=== PATIENT | female | born 1985 | race Caucasian/White ===

== ENCOUNTER 2017-07-04 18:07 | Emergency (ER) | payer BC ==
--- NOTE | 2017-07-04 19:19 | RAD ---
Indication: Right ankle pain. 3 views of the right ankle demonstrates no fracture. Ankle mortise is intact. IMPRESSION: No fracture of the right ankle is noted.
--- NOTE | 2017-07-04 19:46 | ED ---
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 Patient states the posterior part of her distal leg/ ankle hurts and she is unable to walk without intense pain. Denies obvious swelling, bruising. Has not taken any medication for the pain. States she had someone clip her ankle from behind. Denies prior injury. No other complaints or injuries besides a contusion on right knee. Patient is having difficulty with ROM of right ankle/foot. No other medical problems other than asthma. No other complaints. Denies numbness/tingling. - History of Current Complaint Chief Complaint: EDExtremityLower Stated Complaint: RIGHT FOOT INJURY Time Seen by Provider: 07/04/17 19:13 Hx Obtained From: Patient Mechanism Of Injury: Direct Blow - posterior ankle stepped on/clipped Onset of Pain: Immediate, Post Accident Onset/Duration: Minutes Severity Initially: Moderate Severity Currently: Moderate Pain Intensity: 5 Pain Scale Used: 0-10 Numeric Timing: Constant Location: Is Discrete @ - posterior distal leg/ankle, right side Character Of Pain: Aching, Stiffness - unable to move/tight Associated Signs And Symptoms: Positive: Negative Aggravating Factor(s): Standing, Movement, Weight Bearing Alleviating Factor(s): Rest Able to Bear Weight: Yes - however very painful, weight more on left side - Allergies/Home Medications Allergies/Adverse Reactions: Allergies Allergy/AdvReac Type Severity Reaction Status Date / Time Shellfish Allergy Allergy Itching Verified 07/04/17 18:32 PMH/Surg Hx/FS Hx/Imm Hx Endocrine/Hematology History: Denies: Hx Diabetes Cardiovascular History: Denies: Hx Hypertension Respiratory History: Reports: Hx Asthma - Surgical History Surgery Procedure, Year, and Place: n/a - Immunization History Immunizations Up to Date: Yes Infectious Disease History: No Infectious Disease History: Denies: Traveled Outside the [place] in Last 30 Days - Family History Known Family History: Positive: None - Social History Alcohol Use: Weekly Substance Use Type: Reports: None Smoking Status (MU): Never Smoked Tobacco Review of Systems Constitutional: Negative Cardiovascular: Negative Respiratory: Negative Gastrointestinal: Negative Positive: Arthralgia, Myalgia, Decreased ROM - rigth ankle Neurological: Negative All Other Systems Reviewed And Are Negative: Yes Physical Exam Triage Information Reviewed: Yes Vital Signs On Initial Exam: Initial Vitals Temp Pulse Resp BP Pulse Ox 97.8 F 79 15 119/87 100 07/04/17 18:13 07/04/17 18:13 07/04/17 18:13 07/04/17 18:13 07/04/17 18:13 Vital Signs Reviewed: Yes Appearance: Positive: Well-Appearing, Well-Nourished, Pain Distress - moderate with movement or on palpation Skin: Positive: Warm, Skin Color Reflects Adequate Perfusion, Dry. Negative: Cold, Soft, Pale, Erythema @ Head/Face: Positive: Normal Head/Face Inspection Eyes: Positive: Conjunctiva Clear ENT: Positive: Hearing grossly normal Neck: Positive: Supple, Nontender Respiratory/Lung Sounds: Positive: Clear to Auscultation, Breath Sounds Present. Negative: Rales, Rhonchi, Wheezes Cardiovascular: Positive: Normal, RRR, Pulses are Symmetrical in both Upper and Lower Extremities - 2+ pedal b/l CMS intact. Negative: Murmur, Rub Musculoskeletal: Positive: Limited @ - right ankle with flexion and extension, unable, able with passive, some pain, tender to palpation, no obvious deformity , no ecchymosis or edema noted. no step off or crepits, Pain @ - posterior right ankle at achilles tendon area. positive guadarrama test, Other - rest of MSK exam normal. Negative: Interruption @ Neurological: Positive: Normal, Sensory/Motor Intact - sensation intact, Alert, Oriented to Person Place, Time, CN Intact II-III, NV Bundle Intact Distally, Unable to Assess Gait - due to injury Psychiatric: Positive: Affect/Mood Appropriate Diagnostics - Vital Signs Vital Signs Temp Pulse Resp BP Pulse Ox 07/04/17 18:13 97.8 F 79 15 119/87 100 - Laboratory Lab Statement: Any lab studies that have been ordered have been reviewed, and results considered in the medical decision making process. - Radiology r ankle Xray Interpretation: No Acute Changes - No fracture of the right ankle is noted. Radiology Interpretation Completed By: Radiologist Lower Extremity Course/Dx - Course Course Of Treatment: x-ray obtained and negative. due to PE findings (+guadarrama) , MATILDE and HPI patient will be treated for concern of achilles tendon rupture/ tear. placed in slight plantar flexion, equinus, splint. CMS intact both before and after. No other complaints or injuries. given ibuprofen for pain. Follow up ortho for further imaging and evaluation. follow up pcp. aware of worsening signs and symptoms to watch out for. RICE and NSAIDs at home. Do not get splint wet. Crutches and non weight bearing. - Diagnoses Differential Diagnosis/HQI/PQRI: Positive: Contusion, Dislocation, Fracture ( Closed), Sprain, Strain Provider Diagnoses: Right ankle sprain, Achilles tendon injury Discharge - Discharge Plan Condition: Stable Disposition: HOME Prescriptions: Ibuprofen TAB* [Motrin TAB* 600 MG] 600 mg PO Q6H PRN #30 tab PRN Reason: Pain Patient Education Materials: Achilles Tendon Rupture (ED), Ankle Sprain (ED) Referrals: No Primary Care Phys,NOPCP [Primary Care Provider] - Papo Vázquez MD [Medical Doctor] - Additional Instructions: Take ibuprofen for pain and inflammation. Rice, elevate, and compression. Ice as much as possible. Do not remove splint unless it feels like it is too tight. Use crutches, and do not bear weight. Do not get splint wet. Follow up and make an appointment with Ortho for further up imaging and evaluation. Return if symptoms worsen or new symptoms develop.
[2017-07-04] MEDS ORDERED: Ibuprofen TAB* 600 MG PO ONE (21:12)
[2017-07-04 22:13] VITALS: BP 117/75
== END 2017-07-04 21:39 | disposition home or self-care (01) ==
LOC: ED 18:07
DX: S93.401A Sprain of unspecified ligament of right ankle, initial encounter (principal); M25.571 Pain in right ankle and joints of right foot; X58.XXXA Exposure to other specified factors, initial encounter; Y93.66 Activity, soccer; Y92.9 Unspecified place or not applicable; Y99.9 Unspecified external cause status; S86.001A Unspecified injury of right Achilles tendon, initial encounter
CPT/HCPCS: 99282; A9270-GY

== ENCOUNTER 2017-07-17 12:29 | Day surgery (SDC) | payer BC ==
[~2017-07-17 12:29] MED LIST: Buffered Lidocaine 0.9% SYRIN* 5 ML/SYR SYRINGE INTRADERM ONE
[2017-07-17] MEDS ORDERED: ceFAZolin 2 GM PREMIX (*) 50 ML IVPB ONE (12:30)
[2017-07-17] MEDS ORDERED: Buffered Lidocaine 0.9% SYRIN* 5 ML/SYR SYRINGE ONE (12:30)
[2017-07-17] MEDS ORDERED: Bupivacaine 0.5% SDV PF* 30 ML VIAL ONE (13:30)
[2017-07-17] MEDS ORDERED: Lidocaine 1.5% EPI 1:200,000* 30 ML SDV ONE (15:09)
[2017-07-17] MEDS ORDERED: fentaNYL* 50 MCG/ML 2 ML VIAL (100 MCG VIAL) ONE ×3 (15:13→17:28)
[2017-07-17] MEDS ORDERED: Midazolam* 1 MG/ML 2 ML VIAL (2 MG) ONE (15:13)
[2017-07-17] MEDS ORDERED: Ondansetron INJ* 2 MG/ML VIAL ONE (15:41)
[2017-07-17] MEDS ORDERED: Lidocaine 2% PF * 5 ML VIAL ONE (15:41)
[2017-07-17] MEDS ORDERED: Propofol* 10 MG/ML 20 ML BTL IV PUSH ONE (15:41)
[2017-07-17] MEDS ORDERED: Succinylcholine* 20 MG/ML 10 ML VIAL ONE (15:41)
[2017-07-17] MEDS ORDERED: Dexamethasone IV* 4 MG/ML 1 ML (4 MG) ONE (15:41)
[2017-07-17] MEDS ORDERED: Ibuprofen TAB* 600 MG PO PRN (17:25)
[2017-07-17] MEDS ORDERED: Metoclopramide IV* 5 MG/ML 2 ML VIAL IV PRN (17:25)
[2017-07-17] MEDS ORDERED: Scopolamine 1.5 mg* PATCH TRANSDERM PRN (17:25)
[2017-07-17] MEDS ORDERED: Acetaminophen TAB* 325 MG PO PRN (17:25)
[2017-07-17] MEDS ORDERED: Ibuprofen TAB* 600 MG ONE (17:28)
[2017-07-17] MEDS ORDERED: oxyCODONE/Acetamin 5/325 MG* TAB ONE (17:28)
[2017-07-17] MEDS: fentaNYL* 50 MCG/ML 2 ML VIAL (100 MCG VIAL) IV PRN ×3 (17:29→18:39)
[2017-07-17] MEDS ORDERED: HYDROmorphone INJ* 1 MG/ML CARPUJECT SYRINGE ONE (17:36)
[2017-07-17] MEDS: HYDROmorphone INJ* 1 MG/ML CARPUJECT SYRINGE IV PRN ×3 (17:51→18:14)
[2017-07-17 19:22] VITALS: BP 122/76
--- NOTE | 2017-07-18 10:26 | OP ---
OPERATIVE REPORT: DATE OF OPERATION: 07/17/17 DATE OF : 87 SURGEON: Romero Martinez MD. DRILLER AND REAMER: JUVE Ashley. A physician urgent care physician assistant was required for the length of the procedure for positioning and retraction. ANESTHESIOLOGIST: Vandana Kolb MD. ANESTHESIA: General anesthesia, 7 cc of 1.5% lidocaine with epinephrine. PRE-OP DIAGNOSIS: Right Achilles tendon rupture. POST-OP DIAGNOSIS: Right Achilles tendon rupture. OPERATIVE PROCEDURE: Right open Achilles tendon repair. IV FLUIDS: 1100 cc crystalloid. ANTIBIOTICS: Ancef 2 g IV. TOURNIQUET TIME: 69 minutes at 300 mmHg. COMPLICATIONS: None. ESTIMATED BLOOD LOSS: Minimal. SPECIMEN: None. IMPLANTS: FiberWire #2 suture only. 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 Diagnosis was confirmed on MRI. I discussed with the patient in the office nonoperative and operative treatment of Achilles tendon r uptures, specifically proximal type. The patient opted for operative management. Discussed benefit s, risks and potential complications with the patient. Risks and potential complications discussed included bleeding, infection, nerve or blood vessel injury, wound breakdown, Achilles tendon reruptu re. DESCRIPTION OF PROCEDURE: Preoperative written consent was obtained. Operative extremity was marke d in the preoperative holding. The patient was taken back to the operating room and intubated on th e stretcher. The patient was flipped over and placed prone on the operating room table. Bumps were placed, x2, that ran from the ASIS of the pelvis, left and right to the chest, under the breast. O perating room table was well padded. Axillae were both free. Tourniquet was placed on the right lo wer extremity, thigh. The right lower extremity was prepped with Betadine. The right lower extremit y was draped. Surgical time-out was performed. Esmarch was applied and tourniquet was elevated to 300 mmHg. Skin incision was made, longitudinal, just medial to the medial border of the Achilles tendon, centered proximal to distal over the defect in the Achilles, palpable through the skin and confirmed with a ruler to be approximately 6 cm prox imal to the distal insertion, corresponding with MRI images. I continued deep dissection with a deep blade, #15 also. Cut down to the peritenon. Incised the pe ritenon in a longitudinal fashion, mirroring the skin incision. The patient was noted to have what seemed to be decent quality peritenon. Achilles tendon was encountered. Rupture was clearly presen t. There was perhaps a 2% of tendon still intact. Irrigation. Blood clots removed. Grabbed each t endon edge with Allis clamps. Placed a Krackow stitch, locking, up and back in each tendon end with #2 FiberWire suture. Tied FiberWire stitches and tendon ends together. With the tendons ends oppo sing, the patient was in perhaps 15 degrees of plantar flexion. It should be noted that I specifically had my suture ends opposite the tendon in very specific locat ions so as to have the appropriate tension on the Achilles tendon when the tendon ends opposed. Thi s became somewhat of a moot point, as the tendon was very friable and loose the tail end of each fra gments adjacent to the suture ends. This brought together tendon very nicely. I then placed a reinforcing stitches that tubularized jus t little bit as well with Vicryl horizontal mattress stitches using Vicryl 0 suture. The tendon was pretty well tubularized just with the FiberWire suture so these Vicryl stitches were just supplemen tation. It should be noted, that in order for my FiberWire knots to not be present posteriorly, I t ook the FiberWire ends, after having tied knots, used to free needle to place a stitch with each damaso r exiting medial and lateral so that these knots would be intrasubstance of the Achilles or medial a nd lateral rather than posterior. After tubularizing and supplementing the repair with Vicryl 0 stitches, I then irrigated one more ti me. I closed the peritenon with running and simple stitches using Vicryl 2-0 suture. I closed the subcu taneous tissue with buried simple stitches using Vicryl 3-0 suture. Closure of the skin done with ru nning stitch using nylon 4-0 suture. Xeroform, 4x4's, sterile Webril. The tourniquet was dropped. A splint was placed, posterior followed by sugar-tong with the ankle in a resting position with the patient still prone. The patient was converted to supine position on the stretcher and transferred to the PACU after havi ng been extubated. DISPOSITION: Patient will be discharged when medically stable. The patient will follow up in clini c in 10 to 14 days and have her splint removed. She will take Percocet for pain control and aspirin 325 mg p.o. b.i.d. x2 weeks for DVT prophylaxis. [id number]/[facility] #: [id number]
== END 2017-07-17 20:09 | disposition home or self-care (01) ==
LOC: OR 12:29
PROVIDERS: ATTEND Orthopaedic Surgery
DX: S86.011A Strain of right Achilles tendon, initial encounter (principal); X50.9XXA Other and unspecified overexertion or strenuous movements or postures, initial encounter; Y92.9 Unspecified place or not applicable; Y93.66 Activity, soccer; J45.909 Unspecified asthma, uncomplicated
CPT/HCPCS: 81025; A9270-GY; J0330; J0690; J1100; J1170; J2250; J2405; J2704; J3010